=== PATIENT | male | born 1990 | race Caucasian/White ===

== ENCOUNTER 2020-02-01 22:58 | Inpatient (IN) | payer MEDICARE, MEDICAID, SELFPAY ==
--- NOTE | 2020-02-01 23:05 | PC.NURSE ---
pt arrived via EMS gurney from [facility]. vital signs and admission questions completed. pt alert and oriented.
[2020-02-01 23:30] VITALS: BP 115/80; PULSE 98; RESP 22; TEMP 36.7; O2SAT 98
[2020-02-02] MEDS: trazodone 50 mg Tablet PO ×2 (00:01→20:23)
[2020-02-02] MEDS: hyDROXYzine 25 mg Capsule 50 MG PO ×2 (00:02→18:21)
--- NOTE | 2020-02-02 00:03 | PC.NURSE ---
Resident of Yuan Cruz.
--- NOTE | 2020-02-02 00:12 | PC.NURSE ---
Tattoo on left shoulder. No skin injuries or abnormalities noted.
[2020-02-02 06:00] VITALS: BP 96/62; PULSE 72; RESP 18; TEMP 37.2; O2SAT 97
[2020-02-02] MEDS: lisinopril 10 mg Tablet PO (08:03)
[2020-02-02] MEDS: dicyclomine 20 mg Tablet PO ×3 (08:03→20:23)
[2020-02-02] MEDS: sertraline 50 mg Tablet PO (08:03)
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
[2020-02-02 13:28] VITALS: BP 110/69; PULSE 86; RESP 18; TEMP 37; O2SAT 98
[2020-02-02] MEDS: paliperidone ER 6 mg Tablet PO (13:36)
[2020-02-02] MEDS: nicotine 21 mg Patch 1 PATCH TRANSDERMA (15:06)
--- NOTE | 2020-02-02 18:21 | PC.NURSE ---
PRN VISTARIL 50 MG GIVEN PO PER PT C/O STATED ANXIETY. NO OUTWARD S/S OF ANXIETY NOTED. MOOD PLEASANT, PT APPEARS CALM. WILL CONT TO MONITOR.
[2020-02-02] MEDS: montelukast sodium 10 mg Tablet PO (20:24)
[2020-02-02 21:13] VITALS: BP 119/83; PULSE 82; RESP 17; TEMP 36.8; O2SAT 97
--- NOTE | 2020-02-02 21:22 | PC.NURSE ---
pt given scheduled Bentyl and singulair. Pt requested sleep and anxiety med, prn trazodone and vistaril given per request.
[2020-02-03 06:00] VITALS: BP 113/76; PULSE 88; RESP 16; TEMP 36.6; O2SAT 98
[2020-02-03] MEDS: sertraline 50 mg Tablet PO (08:09)
[2020-02-03] MEDS: paliperidone ER 6 mg Tablet PO (08:10)
[2020-02-03] MEDS: lisinopril 10 mg Tablet PO (08:10)
[2020-02-03] MEDS: dicyclomine 20 mg Tablet PO ×3 (08:10→20:36)
--- NOTE | 2020-02-03 12:29 | P.PN_ITS ---
Subjective NPU Subjective: Interval history: Prince presented today reporting that he slept well with the Trazodone. He said the Invega seems to help, and he is not ready to let go of the Vraylar when he leaves. But we did discuss that fact that it is highly possible that the insurance companies will not let him keep both medications. He reported that he is still struggling with thoughts related to his and significant other, and is upset that the system does not seem to be supporting his concerns. Mental Status Exam MSE Comments: This is an overweight versus obese, white male, with hospital scrubs on, with adequate grooming and limited eye contact. No abnormal movements, except for mild psychomotor retardation. Cooperative with exam in mild to moderate distress. Speech was decreased rate and volume. Mood described as angry; affect congruent and occasionally tearful, especially when talking about not being able to see his son. Thought process, organized. Thought content: patient denied any suicidal or homicidal ideation, there were no delusions reported or noted, patient denied any auditory or visual hallucinations. Attention and concentration appeared intact, and memory appeared reliable, but none were formally tested. He is alert and oriented times three. Insight and judgment appear fair. Impulse control appears impaired. Intellectual ability seems impaired. Vitals/I&O/Wt Last Vital Signs Temp 98.3 F 02/03/20 20:03 Pulse 112 H 02/03/20 20:03 Resp 18 02/03/20 20:03 BP 113/77 02/03/20 20:03 Pulse Ox 97 02/03/20 20:03 A&P Additional A&P Information (1) Schizophrenia: (2) Impulse control disorder: (3) Intellectual disability: (4) Borderline intellectual functioning: (5) Partner relational problem: This is a 29 year old, , white male, going through a divorce, a custody beckwith, and recent release from group home, who is struggling with the changes in his life over the last ten months, reporting that the medication has not been as effective, endorsing lethality towards himself and the individual that is dating his , who reports an openness to trying some new medications. Continue current medication, except: Encourage individual, group, and milieu therapy. Continue q-15 minute checks for safety. Involuntary Hold Information 96 Hour Hold: 96 Hour Involuntary Admission: No Attestations NPU Medical Necessity Statement*: Inpatient hospitalization is medically necessary and the clinically appropriate intervention, at this time. We will monitor medications and make changes as indicated. Likely length of stay is 3-5 days. Coding Level of Care Code Acute Screen Stretcher for Evelia Kimball
[2020-02-03 14:00] VITALS: BP 115/81; PULSE 76; RESP 20; TEMP 37.2; O2SAT 95
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
[2020-02-03] MEDS: hyDROXYzine 25 mg Capsule 50 MG PO (16:56)
--- NOTE | 2020-02-03 16:57 | PC.NURSE ---
vistaril Patient came to nurses station with complaints of anxiety, PRN Vistaril given at this time. Will monitor effectiveness of med.
[2020-02-03 20:03] VITALS: BP 113/77; PULSE 112; RESP 18; TEMP 36.8; O2SAT 97
[2020-02-03] MEDS: montelukast sodium 10 mg Tablet PO (20:36)
[2020-02-03] MEDS: OLANZapine 5 mg ODT PO (20:38)
[2020-02-03] MEDS: haloperidol 5 mg Tablet PO (21:55)
[2020-02-04 06:00] VITALS: BP 121/84; PULSE 93; RESP 17; TEMP 36.7; O2SAT 97
[2020-02-04] MEDS: dicyclomine 20 mg Tablet PO ×3 (08:20→20:44)
[2020-02-04] MEDS: sertraline 100 mg Tablet PO (08:20)
[2020-02-04] MEDS: paliperidone ER 6 mg Tablet PO (08:20)
[2020-02-04] MEDS: lisinopril 10 mg Tablet PO (08:20)
[2020-02-04] MEDS: hyDROXYzine 25 mg Capsule 50 MG PO ×2 (13:26→20:44)
--- NOTE | 2020-02-04 13:27 | PC.NURSE ---
ABBY Cabrales Patient came to nurses station with complaints of anxiety. He was seen pacing in his room while talking to Jerica. Will monitor the effectiveness of this medication.
[2020-02-04] MEDS: nicotine 21 mg Patch 1 PATCH TRANSDERMA (13:42)
[2020-02-04 14:00] VITALS: BP 126/79; PULSE 117; RESP 20; TEMP 37; O2SAT 97
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
[2020-02-04 20:14] VITALS: BP 118/74; PULSE 102; RESP 22; TEMP 36.5; O2SAT 97
[2020-02-04] MEDS: OLANZapine 5 mg ODT PO (20:44)
[2020-02-04] MEDS: montelukast sodium 10 mg Tablet PO (20:44)
[2020-02-04] MEDS: trazodone 50 mg Tablet PO (21:42)
[2020-02-04] MEDS: acetaminophen 325 mg Tablet 650 MG PO (23:41)
[2020-02-05 06:00] VITALS: RESP 15
--- NOTE | 2020-02-05 08:27 | PC.RESP ---
SMOKING CESSATION INFORMATION SENT TO PATIENT.
[2020-02-05] MEDS: paliperidone ER 6 mg Tablet PO (08:34)
[2020-02-05] MEDS: dicyclomine 20 mg Tablet PO ×3 (08:34→21:01)
[2020-02-05] MEDS: lisinopril 10 mg Tablet PO (08:34)
[2020-02-05] MEDS: sertraline 100 mg Tablet PO (08:34)
[2020-02-05] MEDS: acetaminophen 325 mg Tablet 650 MG PO (12:39)
[2020-02-05 14:00] VITALS: BP 117/78; PULSE 88; RESP 18; TEMP 36.8; O2SAT 97
[2020-02-05] MEDS: nicotine 21 mg Patch 1 PATCH TRANSDERMA (14:09)
--- NOTE | 2020-02-05 16:10 | PM.NPN ---
Subjective NPU Subjective: Interval history: Prince presents today and reports that he feels a little better. He feels like the medication is helping a little bit and is open to beginning a conversation about discharge. We reviewed concerns that we had regarding comments he made as recently as yesterday, that he wanted to go and do bad and aggressive things towards his and her significant other, in a way that was speaking about as if it was going to happen, not how he feels. He then made equally problematic statements today. We spoke about the dangers of saying some of the things he is thinking with his anger. He reports that he is just somewhat having cabin fever and wanting to get out, but he understands that he needs to continue to work on decreasing these thoughts that he is having. He reported that he had to really wait before they could get the prn to him for sleep last night, and so we discussed the risks, benefits, and alternatives of making the Trazodone a standing medication, and he understood and agreed to proceed as is documented in this note. Mental Status Exam MSE Comments: This is an overweight versus obese, white male, with hospital scrubs on, with adequate grooming and limited eye contact. No abnormal movements, except for mild psychomotor retardation with moments of agitation. Cooperative with exam in mild to moderate distress. Speech was normal rate and often decreased volume. Mood described as upset; affect congruent and occasionally tearful, especially when talking about not being able to see his son. Thought process, organized. Thought content: patient denied any suicidal or homicidal ideation, there were no delusions reported or noted, patient denied any auditory or visual hallucinations. Attention and concentration appeared intact, and memory appeared reliable, but none were formally tested. He is alert and oriented times three. Insight and judgment appear limited. Impulse control appears impaired. Intellectual ability seems impaired. Vitals/I&O/Wt Last Vital Signs Temp 98.3 F 02/05/20 14:00 Pulse 88 02/05/20 14:00 Resp 18 02/05/20 14:00 BP 117/78 02/05/20 14:00 Pulse Ox 97 02/05/20 14:00 A&P Additional A&P Information (1) Schizophrenia: (2) Impulse control disorder: (3) Intellectual disability: (4) Borderline intellectual functioning: (5) Partner relational problem: This is a 29 year old, , white male, going through a divorce, a custody beckwith, and recent release from group home, who is struggling with the changes in his life over the last ten months, reporting that the medication has not been as effective, endorsing lethality towards himself and the individual that is dating his , who reports an openness to trying some new medications. Continue current medication. Encourage individual, group, and milieu therapy. Continue q-15 minute checks for safety. Will continue to work on anger management and safety concerns. Involuntary Hold Information 96 Hour Hold: 96 Hour Involuntary Admission: No Attestations NPU Medical Necessity Statement*: Inpatient hospitalization is medically necessary and the clinically appropriate intervention, at this time. We will monitor medications and make changes as indicated. Likely length of stay is 2-4 days. Coding Level of Care Code Acute Manager [employer]able [employer] for Evelia Kimball
[2020-02-05] MEDS: OLANZapine 5 mg ODT PO (16:37)
--- NOTE | 2020-02-05 16:38 | PC.NURSE ---
Prn Zyprexa Zydis Given for anxiety will continue to monitor
[2020-02-05] MEDS: phenyleph-mineral oil-petrolat Oint 28 gm 1 APPLIC PR (17:37)
--- NOTE | 2020-02-05 17:47 | PC.NURSE ---
PRN Preparation H application given for Hemorrhoids
[2020-02-05 20:27] VITALS: BP 98/61; PULSE 97; RESP 17; TEMP 37; O2SAT 98
[2020-02-05] MEDS: trazodone 50 mg Tablet PO (21:01)
[2020-02-05] MEDS: montelukast sodium 10 mg Tablet PO (21:01)
[2020-02-05] MEDS: hyDROXYzine 25 mg Capsule 50 MG PO (22:21)
[2020-02-06 06:00] VITALS: BP 113/76; PULSE 76; RESP 15; TEMP 36.5; O2SAT 97
[2020-02-06] MEDS: paliperidone ER 6 mg Tablet PO (08:50)
[2020-02-06] MEDS: sertraline 100 mg Tablet PO (08:51)
[2020-02-06] MEDS: lisinopril 10 mg Tablet PO (08:51)
[2020-02-06] MEDS: nicotine 21 mg Patch 1 PATCH TRANSDERMA (08:52)
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
[2020-02-06 13:38] VITALS: BP 121/71; PULSE 123; RESP 22; TEMP 36.7; O2SAT 96
[2020-02-06] MEDS: dicyclomine 20 mg Tablet PO ×2 (14:41→21:05)
[2020-02-06] MEDS: acetaminophen 325 mg Tablet 650 MG PO (15:43)
[2020-02-06] MEDS: buPROPion SR (12 HR) 150 mg Tablet PO (16:13)
[2020-02-06] MEDS: montelukast sodium 10 mg Tablet PO (21:05)
[2020-02-06] MEDS: trazodone 50 mg Tablet PO (21:05)
[2020-02-06] MEDS: hyDROXYzine 25 mg Capsule 50 MG PO (21:05)
--- NOTE | 2020-02-06 21:07 | PC.NURSE ---
PRN VISTARIL PT REQUESTING ANXIETY MEDICATION. ADMINISTERED VISTARIL 50MG PO. WILL MONITOR FOR MEDICATION EFFECTIVENESS,
[2020-02-06 21:36] VITALS: BP 120/79; PULSE 104; RESP 19; TEMP 36.6; O2SAT 96
[2020-02-07 06:00] VITALS: BP 133/74; PULSE 89; RESP 19; TEMP 36.3; O2SAT 96
[2020-02-07] MEDS: buPROPion XL (24 HR) 150 mg Tablet PO (07:50)
[2020-02-07] MEDS: lisinopril 10 mg Tablet PO (07:50)
[2020-02-07] MEDS: dicyclomine 20 mg Tablet PO ×3 (07:50→21:20)
[2020-02-07] MEDS: sertraline 100 mg Tablet PO (07:50)
[2020-02-07] MEDS: paliperidone ER 6 mg Tablet PO (07:50)
[2020-02-07] MEDS: nicotine 21 mg Patch 1 PATCH TRANSDERMA (07:52)
[2020-02-07] MEDS: acetaminophen 325 mg Tablet 650 MG PO (13:41)
[2020-02-07 14:00] VITALS: BP 149/83; PULSE 109; RESP 18; TEMP 37.5; O2SAT 97
--- NOTE | 2020-02-07 14:11 | PM.NPN ---
Subjective NPU Subjective: Interval history: Prince presents today reporting that he likes being outside and has been a big proponent of getting out and getting some sunshine. He continues to report a plan to really get his life back on track and focus on building something and less on his ex and what she is doing, or has done, letting the system take care of things, but being prepared, as he and I discussed, for the opportunity when it knocks, instead of focusing on it knocking and then not being prepared to take advantage of an opportunity to be connected with his son. He still reports a consideration of [place], at some point, but right now his plan is to hopefully discharge tomorrow and then go back to [place] and try his best to get things in order and be prepared to have his own spot. Mental Status Exam MSE Comments: This is an overweight versus obese, white male, with hospital scrubs on, with adequate grooming and eye contact. No abnormal movements, except for resolving psychomotor retardation. Cooperative with exam in no acute distress. Speech was normal rate and more normal volume. Mood described as better; affect congruent. Thought process, organized. Thought content: patient denied any suicidal or homicidal ideation, there were no delusions reported or noted, patient denied any auditory or visual hallucinations. Attention and concentration appeared intact, and memory appeared reliable, but none were formally tested. He is alert and oriented times three. Insight and judgment appear improving. Impulse control appears improving. Intellectual ability seems impaired. Vitals/I&O/Wt Last Vital Signs Temp 98.8 F 02/07/20 21:29 Pulse 92 02/07/20 21:29 Resp 19 H 02/07/20 21:29 BP 109/71 02/07/20 21:29 Pulse Ox 99 02/07/20 21:29 Weight last 48 hrs Weight 80.286 kg A&P Additional A&P Information (1) Schizophrenia: (2) Impulse control disorder: (3) Intellectual disability: (4) Borderline intellectual functioning: (5) Partner relational problem: This is a 29 year old, , white male, going through a divorce, a custody beckwith, and recent release from shelter, who is struggling with the changes in his life over the last ten months, reporting that the medication has not been as effective, endorsing lethality towards himself and the individual that is dating his , who is demonstrating some improvement overall. Continue current medication. Encourage individual, group, and milieu therapy. Continue q-15 minute checks for safety. Will continue to work on anger management and safety concerns. Involuntary Hold Information 96 Hour Hold: 96 Hour Involuntary Admission: No Attestations NPU Medical Necessity Statement*: Inpatient hospitalization is medically necessary and the clinically appropriate intervention, at this time. We will monitor medications and make changes as indicated. Likely length of stay is 1-2 days. Coding Level of Care Code Acute Project Development Coordinator for Evelia Kimball
[2020-02-07] MEDS: hyDROXYzine 25 mg Capsule 50 MG PO ×2 (15:17→21:20)
[2020-02-07] MEDS: montelukast sodium 10 mg Tablet PO (21:20)
[2020-02-07] MEDS: trazodone 50 mg Tablet PO (21:20)
[2020-02-07 21:29] VITALS: BP 109/71; PULSE 92; RESP 19; TEMP 37.1; O2SAT 99
[2020-02-07] MEDS: phenyleph-mineral oil-petrolat Oint 28 gm 1 APPLIC PR (21:32)
--- NOTE | 2020-02-07 22:24 | PC.NURSE ---
pt given scheduled HS bentyl, singulair and trazodone, as well as requested vistaril.
[2020-02-08] MEDS: haloperidol 5 mg Tablet PO (03:06)
--- NOTE | 2020-02-08 03:07 | PC.NURSE ---
pt up to desk every 5 min since 229 requesting vistaril, something for anxiety . pt was informed each time that he could not have said med until 319 pt stated he needed something now . haldol 5mg po given at this time.
[2020-02-08 06:00] VITALS: RESP 21
--- NOTE | 2020-02-08 06:20 | PC.NURSE ---
pt was unable to wake for vitals this morning.
[2020-02-08] MEDS: sertraline 100 mg Tablet PO (09:05)
[2020-02-08] MEDS: nicotine 21 mg Patch 1 PATCH TRANSDERMA (09:05)
[2020-02-08] MEDS: buPROPion XL (24 HR) 150 mg Tablet PO (09:05)
[2020-02-08] MEDS: dicyclomine 20 mg Tablet PO (09:05)
[2020-02-08] MEDS: paliperidone ER 6 mg Tablet PO (09:05)
[2020-02-08] MEDS: lisinopril 10 mg Tablet PO (09:05)
[2020-02-08 09:29] VITALS: RESP 21
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
[2020-02-08] MEDS: acetaminophen 325 mg Tablet 650 MG PO (09:50)
== END 2020-02-08 10:59 | disposition home or self-care (01) | DRG 885 ==
PROVIDERS: Admitting Provider Psychiatry & Neurology Psychiatry; Family Provider Psychiatry & Neurology Neurology; Visit Provider Psychiatry & Neurology Psychiatry
DX: F20.9 Schizophrenia, unspecified (principal); R45.851 Suicidal ideations; F63.9 Impulse disorder, unspecified; F79 Unspecified intellectual disabilities; F68.8 Other specified disorders of adult personality and behavior; F17.210 Nicotine dependence, cigarettes, uncomplicated
CPT/HCPCS: 12345